=== PATIENT | female | born 1980 | race Caucasian/White ===

== ENCOUNTER 2018-12-26 10:00 | Day surgery (SDC) | payer BC ==
[2018-12-26] MEDS ORDERED: Sodium Chloride 0.9% 1,000 ML IV SCH (10:45)
--- NOTE | 2018-12-26 11:10 | C.PDOC ---
History Of Present Illness 38 yo female presents to the ER for evaluation of bruising to bilateral lower legs. Patient states that she was evaluated by her PMD and he referred her to , vascular surgeon. Patient reports that she was evaluated by Dr.P middleton 5 days ago. She notes that he told her he would perform a biopsy today and he referred her to the ER. Denies having other complaints at this time. Time Seen by Provider: 12/26/18 10:19 Chief Complaint (Nursing): Lower Extremity Problem/Injury History Per: Patient History/Exam Limitations: no limitations Onset/Duration Of Symptoms: Days Current Symptoms Are (Timing): Still Present Severity: Moderate Past Medical History Reviewed: Historical Data, Nursing Documentation, Vital Signs Vital Signs: Last Vital Signs Temp 97.3 F L 12/26/18 10:02 Pulse 97 H 12/26/18 10:02 Resp 18 12/26/18 10:02 BP 104/72 12/26/18 10:02 Pulse Ox 99 12/26/18 10:02 - Medical History PMH: Hypercholesterolemia Other Surgeries: Hx of surgeries Family History: States: No Known Family Hx - Social History Hx Alcohol Use: No Hx Substance Use: No - Immunization History Hx Tetanus Toxoid Vaccination: No Hx Influenza Vaccination: No Hx Pneumococcal Vaccination: No Review Of Systems Except As Marked, All Systems Reviewed And Found Negative. Constitutional: Negative for: Fever, Chills Skin: Positive for: Bruising (bilateral legs) Neurological: Negative for: Weakness, Numbness Physical Exam - Physical Exam Appears: Non-toxic, No Acute Distress Skin: Normal Color, Warm, Dry, Other (no visible bruising to bilateral legs) Head: Atraumatic, Normacephalic Eye(s): bilateral: Normal Inspection Nose: Normal Oral Mucosa: Moist Neck: Supple Chest: Symmetrical Cardiovascular: Rhythm Regular Respiratory: Normal Breath Sounds, No Rales, No Rhonchi, No Wheezing Gastrointestinal/Abdominal: Normal Exam, Soft, No Tenderness, No Guarding, No Rebound Pulses: Left Dorsalis Pedis: Normal, Right Dorsalis Pedis: Normal Neurological/Psych: Oriented x3, Normal Speech ED Course And Treatment - Laboratory Results Result Diagrams: 12/26/18 11:16 12/26/18 11:16 Lab Interpretation: Normal ECG: Interpreted By Me ECG Rhythm: Sinus Rhythm ECG Interpretation: Normal Rate From EC O2 Sat by Pulse Oximetry: 99 (RA) Pulse Ox Interpretation: Normal - Radiology CXR: Interpreted by Me CXR Interpretation: Yes: No Acute Disease Progress Note: Patient scheduled for OR today. In no distress Medical Decision Making Medical Decision Making: Plan: --Labs --UA --CXR --IV Fluids Disposition Discussed With : Leopoldo Palacio Doctor Will See Patient In The: Hospital - Disposition Disposition: HOSPITALIZED Disposition Time: 12:00 Condition: GOOD - POA Present On Arrival: None - Clinical Impression Clinical Impression: Legal problem - PA / [employer] / Resident Statement MD/DO has reviewed & agrees with the documentation as recorded. - Scribe Statement The provider has reviewed the documentation as recorded by the Scribe Rolan Luna Provider Attestation All medical record entries made by the Scribe were at my direction and personally dictated by me. I have reviewed the chart and agree that the record accurately reflects my personal performance of the history, physical exam, medical decision making, and the department course for this patient. I have also personally directed, reviewed, and agree with the discharge instructions and disposition. Decision To Admit - Pt Status Changed To: Hospital Disposition Of: SDS- Endo,OR,Cath,IR - . Bed Request Type: Same Day Surgery Admitting Physician: Leopoldo Palacio Patient Diagnosis: Legal problem
[2018-12-26 11:24] LABS: BASO # 0.1 K/uL (0.0-0.2); BASO % 0.8 % (0.0-2.0); EOS # 0.2 K/uL (0.0-0.7); EOS % 2.5 % (0.0-4.0); LYMPH # 1.5 K/uL (1.0-4.3); LYMPH % 21.5 % (20.0-40.0); MEAN CELL VOLUME 83.5 fL (81.0-99.0); MEAN CORPUSCULAR HEMOGLOBIN 28.1 pg (27.0-31.0); MEAN CORPUSCULAR HGB CONC 33.7 g/dL (33.0-37.0); MEAN PLATELET VOLUME 9.6 fL (7.2-11.7); MONO # 0.3 K/uL (0.0-0.8); MONO % 3.8 % (0.0-10.0); NEUT % 71.4 % (50.0-75.0); NRBC % 0.1 % (0.0-2.0); RBC 4.62 Mil/uL (3.80-5.20); RED CELL DISTRIBUTION WIDTH 13.6 % (11.5-14.5); WHITE BLOOD COUNT 7.1 K/uL (4.8-10.8)
--- NOTE | 2018-12-26 11:27 | RAD ---
HISTORY: pre-op COMPARISON: None available. TECHNIQUE: Chest PA and lateral FINDINGS: LUNGS: No focal consolidation. Please note that chest x-ray has limited sensitivity for the detection of pulmonary masses. PLEURA: No significant pleural effusion identified. No definite pneumothorax . CARDIOVASCULAR: The cardiomediastinal silhouette appears within normal limits of size. Atherosclerotic calcifications present. OSSEOUS STRUCTURES: Degenerative changes. VISUALIZED UPPER ABDOMEN: Unremarkable. OTHER FINDINGS: None. IMPRESSION: No focal consolidation.
[2018-12-26 11:32] LABS: INR 1.2; PROTHROMBIN TIME 12.9 SECONDS (9.7-12.2)
[2018-12-26 11:45] LABS: HCG,QUALITATIVE URINE NEGATIVE (NEGATIVE)
[2018-12-26 11:51] LABS: ALB/GLOB RATIO 1.4 (1.0-2.1); ALBUMIN 4.6 g/dL (3.5-5.0); ALT/SGPT 18 U/L (9-52); AST/SGOT 29 U/L (14-36); BLOOD UREA NITROGEN 8 mg/dL (7-17); CALCIUM 9.8 mg/dl (8.6-10.4); GFR NON-AFRICAN AMERICAN > 60
[2018-12-26 12:15] LABS: SQUAMOUS EPITHIAL 1 /hpf (0-5); URINE BACTERIA RARE (<OCC); URINE BILIRUBIN NEGATIVE (NEGATIVE); URINE BLOOD NEGATIVE (NEGATIVE); URINE CLARITY Clear (Clear); URINE COLOR Yellow (YELLOW); URINE GLUCOSE (UA) NORMAL (Normal); URINE HYALINE CAST 0-2 /lpf (0-2); URINE LEUKOCYTE ESTERASE NEG Leu/uL (Negative); URINE PROTEIN NEGATIVE (NEGATIVE)
[2018-12-26] MEDS ORDERED: ceFAZolin 1 gm in NS 2 GM/200 ML BAG IVPB ONE (12:31)
[2018-12-26] MEDS ORDERED: Lidocaine Hydrochloride 5 ML INJ ONE (12:31)
[2018-12-26] MEDS ORDERED: Bupivacaine 0.25% 20 ML INJ IJ ONE (12:31)
[2018-12-26] MEDS ORDERED: Midazolam 2 MG/2 ML VIAL ONE (13:08)
[2018-12-26] MEDS ORDERED: Propofol 10 mg/ml Inj (20 ML) ONE (13:08)
[2018-12-26] MEDS ORDERED: Lidocaine Hydrochloride 10 ML INJ ONE (13:18)
[2018-12-26] MEDS ORDERED: HYDROmorphone 0.5 mg/0.5 ml ISec IVP PRN (13:41)
[2018-12-26] MEDS ORDERED: Oxycodone/Acetaminophen 5/325 mg Tab PO PRN (13:46)
[2018-12-26 16:20] VITALS: BP 113/77; PULSE 81; RESP 18; TEMP 97.8
[2018-12-26 16:35] VITALS: O2SAT 99
--- NOTE | 2018-12-27 06:44 | OP ---
PROCEDURE DATE: 12/26/2018 PREOPERATIVE DIAGNOSIS: Infected mass of bilateral knees and left leg. POSTOPERATIVE DIAGNOSIS: Infected mass of bilateral knees and left leg. PROCEDURE PERFORMED: Wide deep excision of mass, bilateral knees and left leg. SURGEON: Leopoldo Palacio MD ANESTHESIA: General. BLOOD LOSS: 20 mL. POSTOPERATIVE CONDITION: Stable. DESCRIPTION OF PROCEDURE: The patient was taken to the operating room. General anesthesia was administered. Both lower extremities were prepped and draped. A generous elliptical incision was made over the soft tissue mass in the left knee area. It was dissected free into the fascia and removed. Bleeding was controlled using the Bovie. Tissue flaps were raised. Counter incisions were made and advancement flap closure was performed with multiple layers of Monocryl, subcuticular Monocryl, and glue. The above was repeated with a 5-cm soft tissue mass in the right knee and the left leg. The patient tolerated the procedure well and returned to the recovery room in stable condition. Leopoldo Palacio MD
== END 2018-12-26 16:25 | disposition home or self-care (01) ==
LOC: C.ER 10:00 → C.SDS 10:49
PROVIDERS: ATTEND Surgery
DX: D17.24 Benign lipomatous neoplasm of skin and subcutaneous tissue of left leg (principal); D17.23 Benign lipomatous neoplasm of skin and subcutaneous tissue of right leg; M17.0 Bilateral primary osteoarthritis of knee; E78.00 Pure hypercholesterolemia, unspecified
CPT/HCPCS: 11402; 12032; 36415; 71046; 80053; 81001; 84703; 85025; 85610; 85730; 86850; 86900; 88307; 99285; J0690; J1170; J2250; J2704; J3010; J7030